=== PATIENT | female | born 1990 | race Caucasian/White ===

== ENCOUNTER 2017-12-21 21:31 | Emergency (ER) | payer MEDICAID, SELFPAY ==
[2017-12-21 21:33] VITALS: BP 94/54; PULSE 97; RESP 20; TEMP 36.3; O2SAT 99; BMI 22.8
--- NOTE | 2017-12-21 21:35 | RAD_ITS ---
STUDY: X-RAY - LEFT TIBIA AND FIBULA REASON FOR EXAM: Female, 27 years old. Trauma. Pain. TECHNIQUE: 2 view(s) of the tibia and fibula were obtained. COMPARISON: None. FINDINGS: Normal visualized tibia. Normal visualized fibula. There is no demonstrated acute fracture. The soft tissue structures are unremarkable. RAD/Tibia & Fibula 2 Views IMPRESSION: Normal x-ray examination of the tibia and fibula. Electronically Signed: Andrew Harris MD at 22:08 EDT , Service support ,
--- NOTE | 2017-12-21 21:38 | RAD_ITS ---
STUDY: X-RAY - LEFT FOOT CLINICAL: Female, 27 years old. Trauma. TECHNIQUE: 3 view(s) of the foot. COMPARISON: None. FINDINGS: Lateral view shows a bone density approximately 5 mm extending off of the dorsal surface of the navicular with what appears to be a fracture line across the base. This is an unusual location for fracture and recommend clinical correlation for any point tenderness. There are no other abnormalities seen. Normal visualized subtalar, talonavicular, calcaneocuboid, tarsal and tarsometatarsal articulations. Normal metatarsi. Normal metatarsophalangeal joint of the great toe. Normal tibial and fibular sesamoid bones. Normal interphalangeal joint of the great toe. Normal phalanges of the great toe. Normal second through fifth metatarsophalangeal joints. Normal interphalangeal joints and phalanges of the lesser toes. The soft tissue structures are unremarkable. RAD/Foot min 3 Views IMPRESSION: Question of a small fracture involving the dorsal surface of the navicular but this would be unusual and recommend correlation for any point tenderness. Electronically Signed: Andrew Harris MD at 22:07 EDT , Service support ,
--- NOTE | 2017-12-21 23:14 | ED.DCSUM_ITS ---
- ER Visit Summary Date of Service: 12/21/17 Chief Complaint: Left foot pain History of Present Illness: The patient is a 27 F who reports a crankshaft fell out of a jeep and onto her left foot. is estimating it weighs approximate 75 pounds. Patient states she was not wearing shoes at the time. S he is complaining of pain to the left foot and anterior left ankle. She did take Tylenol ibuprofen prior to arrival. Physical Examination: Vital signs grossly unremarkable. Patient sitting upright in bed no acute distress. Lower extreme examination is significant for a linear abrasion to the anterior left ankle. There is scattered superficial abrasions to the top of the left foot. No full-thickness lacerations. She does have tenderness of the proximal metatarsals. She has strong distal pulses and normal cap refill. She does have increased pain with flexion or extension of the ankle. Test Results: Left foot x-rays reveal a questionable small fracture involving the dorsal surface of the navicular bone. Left tib-fib x-ray is normal. Emergency Department Course and Treatment: Patient is given oxycodone here for pain. She is placed in a walking boot and referred to orthopedics for follow- up. She is to continue ibuprofen at home and is given a perception for 10 tabs of Percocet. Treatment Plan: [] Disposition: Discharge Impression: Left foot fracture This note was generated with [employer] dictation software. It may contain incorrect words, spelling, and punctuation that were not noted in review of the chart prior to signing ED Disposition - Plan for ED Patient: Disposition: Home or Assisted Living Chief Complaint: Lower Extremity Injury Instructions: ED Fx Foot Prescriptions: Oxycodone HCl/Acetaminophen [Percocet 5/325] 1 tablet PO Q6H PRN PRN 3 Days #12 tablet PRN Reason: Pain Referrals: Michael Haddad MD [STAFF PHYSICIAN] - 1 Week
[2017-12-21] MEDS: oxyCODONE 5 MG Tablet 10 MG PO (23:30)
[2017-12-21 23:41] VITALS: PULSE 96; RESP 16; O2SAT 97
== END 2017-12-21 23:42 | disposition home or self-care (01) ==
PROVIDERS: Emergency Provider Emergency Medicine
DX: S92.902A Unspecified fracture of left foot, initial encounter for closed fracture (principal); W22.8XXA Striking against or struck by other objects, initial encounter; Y93.9 Activity, unspecified; Z72.0 Tobacco use
CPT/HCPCS: 73590; 73630; 99285